=== PATIENT | female | born 1975 | race African-American/Black ===

== ENCOUNTER 2016-06-24 15:11 | Emergency (ER) | payer MEDICARE, OTHER ==
--- NOTE | ~2016-06-24 | EKG ---
PATIENT: CATIA CEDEÑO UNIT #: [id number] Ventricular Rate: 90 BPM Atrial Rate: 90 BPM P-R Interval: 132 ms QRS Duration: 84 ms Q-T Interval: 342 ms QTC Calculation(Bezet): 418 ms P [place]: 45 degrees Calculated R [place]: 56 degrees Calculated T [place]: 27 degrees Diagnosis Line: Normal sinus rhythm Diagnosis Line: Normal ECG Diagnosis Line: When compared with ECG of 18-MAR-2015 10:23, Diagnosis Line: No significant change was found Diagnosis Line: Confirmed by XOCHILT POTTS MD ([id number]) on Diagnosis Line: 06/26/2016 8:36:11 AM INTERPRETING MD: KATLYN BATES
--- NOTE | ~2016-06-24 | CR72 ---
[facility] A Service of [facility] & [facility] RADIOLOGY TEXT RESULTS PATIENT: CATIA CEDEÑO LOCATION: [facility] : 71 UNIT #: [id number] AGE: [address]: Paul Vanessa MD SEX: F ORDER DR: [id number] [facility] [address] [place], [place] [address] [id number] E MR#: [id number] Acc #: [id number] NAME: CATIA CEDEÑO : 1975 SEX: F STUDY DATE/TIME: 06/24/2016 17:23 UNIT: [facility] ROOM: STUDY DESCRIPTION: CR Chest Single View Portable Attending Physician: Paul Vanessa M.D. Ordering Physician: Paul Vanessa M.D. Primary Care Physician: Vivien Garcia A.P.R.N. MEDICAL IMAGING REPORT This report is preliminary unless electronic signature is present EXAM Portable chest HISTORY Short of air, weakness, joint pain 2 days. History of asthma, gout, Lap-Band, PTSD. COMMENT Single frontal portable view of the chest reviewed. Comparison study is from 05/27/2012. The cardiac silhouette size is borderline enlarged and there is new linear opacity in the right lower lobe which I suspect is linear atelectasis or scarring but it is new from the previous. Given asthma history, please correlate for any clinical concern for mucus plugging and a postobstructive atelectasis. No acute congestive failure, pleural effusion or pneumothorax is suspected. IMPRESSION Interval development of linear airspace disease at the right base which could be linear scarring or atelectasis. Since the patient presents with asthma history, please correlate for clinical evidence of mucus plugging and a postobstructive atelectasis. I would recommend a followup film to reassess. If there is an interval outside film since 2012, this would be helpful also. Borderline cardiac silhouette size. Dictated by... Emily Hale M.D. THIS IS AN ELECTRONICALLY VERIFIED REPORT Emily Hale M.D. at 06/25/2016 1:43 PM [facility]. [facility] A Service of [facility] RADIOLOGY TEXT RESULTS PATIENT: CATIA CEDEÑO LOCATION: [facility] : 71 UNIT #: [id number] AGE: [address]: Paul Vanessa MD SEX: F ORDER DR: CHRIS/herson TD: 06/25/2016 08:13 JOB #: [id number] MEDICAL IMAGING REPORT Page 1 of 1 COPY
[~2016-06-24 15:11] MED LIST: ALBUTEROL17 GM INH; DIAZEPAM10 MG PO; FLONASE16 GM; IBUPROFEN PO; INDOCIN SR75 MG PO; K-DUR20 ME1 PO; LASIX20 MG PO; LOPID600 MG PO; LORTAB 101 TAB 10/5 PO; MEDROL DOSEPAK4 MG DOB; MEDROL4 MG/DOSE- PO; NEURONTIN300 MG PO; PRINIVIL40 MG PO; PROZAC40 MG PO; ROBAXIN500 MG PO; SYMBICORT INH; TOPAMAX25 MG PO; VOLTAREN50 MG PO; ZYLOPRIM100 MG PO; ZYRTEC PO
[2016-06-24 17:48] LABS: BASOPHIL% 0.1 % (0-2.5); EOSINOPHIL# 0.2 X10e3 (0-0.7); EOSINOPHIL% 1.5 % (0.0-7.0); HEMOGLOBIN 12.1 gm/dL (12.0-16.0); LYMPHOCYTE# 1.1 X10e3 (1.0-3.5); LYMPHOCYTE% 7.8 % (17.0-45.0); MEAN CELL VOLUME 92.1 FL (83-96); MEAN CORPUSCULAR HEMOGLOBIN 30.2 PG (28-34); MEAN CORPUSCULAR HGB CONC 32.7 g/dL (30-36); MEAN PLATELET VOLUME 11.2 FL (6.5-11.5); MONOCYTE# 0.4 X10e3 (0-1.0); NEUTROPHIL% 87.6 % (40-75); PLATELET COUNT 185 X10e3 (140-420); RED BLOOD COUNT 4.02 X10e (3.90-5.30); RED CELL DISTRIBUTION WIDTH 14.3 % (11.0-15.5); WHITE BLOOD COUNT 14.8 X10e3 (4.0-10.5)
[2016-06-24 17:50] LABS: DIFF IND YES
[2016-06-24 18:12] LABS: ALBUMIN SERUM 2.7 g/dL (3.5-5.0); BILIRUBIN, DIRECT 0.5 mg/dL (0.0-0.2); BILIRUBIN,INDIRECT 0.9 mg/dL (0.0-0.9); BILIRUBIN,TOTAL 1.4 mg/dL (0.2-2.0); BUN/CREATININE RATIO 19.16; CREATININE SERUM 1.2 mg/dL (0.6-1.4); GLOM FILT RATE Estimated 64.1 mL/min (>60); POTASSIUM 4.6 mmol/L (3.5-5.1); PROTEIN TOTAL SERUM 6.8 g/dL (6.0-8.3)
[2016-06-24 18:32] LABS: URINE SOURCE CLEAN CATCH
[2016-06-24 18:34] LABS: ANISOCYTOSIS SL; PLATELET ESTIMATE NORMAL (NORMAL)
[2016-06-24 18:41] LABS: URINE APPEARANCE CLEAR; URINE BILIRUBIN NEG (NEG); URINE BLOOD NEG (NEG); URINE GLUCOSE NEG (NEG); URINE KETONE NEG (NEG); URINE NITRATE NEG (NEG); URINE PH 6.5 (5-8); URINE PROTEIN NEG (NEG); URINE SPECIFIC GRAVITY 1.001 (1.003-1.035); URINE UROBILINOGEN 0.2 MG/DL (NEG)
[2016-06-24 19:09] LABS: URINE COLOR STRAW; URINE LEUKOCYTE ESTERASE NEG (NEG)
[2016-06-24 19:12] LABS: CULTURE INDICATED? NO
== END 2016-06-24 19:10 | disposition home or self-care (01) ==
LOC: CED 15:11
PROVIDERS: Emergency Medicine
DX: J18.9 Pneumonia, unspecified organism (principal); E11.9 Type 2 diabetes mellitus without complications; E78.5 Hyperlipidemia, unspecified; I10 Essential (primary) hypertension
CPT/HCPCS: 36415; 71010; 80048; 80076; 81003; 82947; 85025; 93005; 94640; 99283; J0696; J2930